=== PATIENT | male | born 1975 | race Caucasian/White ===

== ENCOUNTER 2017-07-18 10:03 | Emergency (ER) | payer SELFPAY ==
[~2017-07-18] VITALS: Ht 170.2 cm; Wt 59.0 kg
[2017-07-18 11:00] VITALS: BP 106/64
[2017-07-18] MEDS ORDERED: Albuterol ud Inhalation HHN ONE (11:45)
[2017-07-18] MEDS ORDERED: KEFLEX500 MG ORAL (12:11)
[2017-07-18] MEDS ORDERED: Bacitracin Oint UD TOPIC ONE ×3 (12:22→12:45)
[2017-07-18] MEDS ORDERED: BACITRACIN1 EACH TOPIC (12:40)
[2017-07-18] MEDS ORDERED: NYSTATIN100000 UN1 ORAL (12:40)
[2017-07-18 12:48] VITALS: BP 106/64
--- NOTE | 2017-07-18 13:42 | Emergency Room Report ---
History of Present Illness General Chief Complaint: Sore Throat Source: Patient Present Illness HPI Upon initial evaluation patient reported to me that he did not want to give his real name or his real date of Patient here reports that he came from [place] Reports several different emergency room visits Currently the patient complained of a mild sore throat He also complains of chronic wounds in the left inguinal and low back region Patient felt dehydrated Is requesting IV hydration Otherwise denies any chest pain denies any fevers Allergies: Coded Allergies: No Known Allergies (Unverified , 07/18/17) Patient History Past Medical History: see triage record Pertinent Family History: none Reviewed Nursing Documentation: PMH: Agreed, PSxH: Agreed Nursing Documentation-PMH Past Medical History: No Stated History Review of Systems All Other Systems: negative except mentioned in HPI Physical Exam Vital Signs Date Time Temp Pulse Resp B/P (MAP) Pulse Ox O2 Delivery O2 Flow Rate FiO2 07/18/17 10:04 97.7 114 19 106/64 98 Room Air Sp02 EP Interpretation: reviewed, normal General Appearance: no apparent distress Head: normocephalic, atraumatic Eyes: bilateral eye PERRL, bilateral eye EOMI ENT: pharyngeal erythema Neck: supple Respiratory: lungs clear Cardiovascular #1: regular rate, rhythm, no edema Gastrointestinal: non tender, soft Musculoskeletal: normal inspection Neurologic: alert, oriented x3, responsive Skin: other - Patient shows to signs of skin breakdown one involves the left inguinal region appears to be fairly superficial, also lower sacral region, also appears to be superficial, no obvious fluctuance or streaking of erythema, Lymphatic: no adenopathy Medical Decision Making Diagnostic Impression: Primary Impression: pharyngitis Additional Impression: chronic wounds ER Course Patient's presentation reveals a some significant chronic component to his complaints patient had wound care addressed also provided with medications Patient was hydrated with IV per his request And at this time stable for close outpatient followup Last Vital Signs Date Time Temp Pulse Resp B/P (MAP) Pulse Ox O2 Delivery O2 Flow Rate FiO2 07/18/17 12:48 97.7 78 18 106/64 100 Room Air Status: improved Disposition: HOME, SELF-CARE Condition: Improved Scripts Nystatin* (NYSTATIN*) 100,000 Unit/1 Ml Oral.susp 10 ML ORAL FOUR TIMES A DAY for 7 Days, ML Swish in the mouth and retain for as long as possible (several minutes) before swallowing Prov: NOHEMI DAVIDSON D.O. 07/18/17 Bacitracin (BACITRACIN*) 1 Each Packet 1 PACKET TOPIC BID, #30 PACKET 0 Refills Prov: NOHEMI DAVIDSON D.O. 07/18/17 Cephalexin* (KEFLEX*) 500 Mg Capsule 500 MG ORAL Q6H, #28 CAP 0 Refills Prov: NOHEMI DAVIDSON D.O. 07/18/17 Referrals: NOT CHOSEN IPA/MD,REFERRING (PCP) Patient Instructions: Delayed Wound Closure, Pharyngitis, [id number] Additional Instructions: Patient is provided with the discharge instructions notified to follow up with primary doctor in the next 2-3 days otherwise return to the er with any worsening symptoms. Please note that this report is being documented using [employer] technology. This can lead to erroneous entry secondary to incorrect interpretation by the dictating instrument. NOHEMI DAVIDSON D.O. Jul 18, 2017 13:42
== END 2017-07-18 12:54 | disposition home or self-care (01) ==
LOC: EMR 12:10 → EDBD 12:10 → EMR 12:54
DX: J02.9 Acute pharyngitis, unspecified (principal); S30.92XA Unspecified superficial injury of abdominal wall, initial encounter; S30.91XA Unspecified superficial injury of lower back and pelvis, initial encounter; X58.XXXA Exposure to other specified factors, initial encounter; Y92.9 Unspecified place or not applicable
CPT/HCPCS: 94640; 94664; 96360; 99284